=== PATIENT | male | born 1935 | race Caucasian/White ===

== ENCOUNTER → 2016-08-23 | Outpatient (CLI) | payer MEDICARE ==
--- NOTE | 2016-08-23 15:53 | US ---
EXAMINATION TYPE: US kidneys/renal and bladder DATE OF EXAM: 08/23/2016 COMPARISON: NONE CLINICAL HISTORY: N28.1 DAVE RENAL CYST. assess renal cysts EXAM MEASUREMENTS: Right Kidney: 10.5 x 4.6 x 7.3 cm Left Kidney: 10.9 x 5.4 x 5.3 cm Right Kidney: cortical thinning with multiple cyst seen, largest = 3.1cm at inferior pole Left Kidney: cortical thinning with multiple cyst, largest = 6.1cm Bladder: wnl seen Bilateral Jets seen: yes There is no evidence for hydronephrosis at this point in time. No nephrolithiasis is seen. No solid masses identified. The urinary bladder is anechoic. Bilateral ureteral jets are seen. 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
== END | disposition home or self-care (01) ==
LOC: RADUSWWP 14:03
PROVIDERS: ATTEND Internal Medicine Nephrology
DX: N28.1 Cyst of kidney, acquired (principal)
CPT/HCPCS: 76770

== ENCOUNTER 2019-09-04 04:23 | Emergency (ER) | payer MEDICARE ==
[2019-09-04 04:32] VITALS: RESP 18
[2019-09-04] MEDS ORDERED: LIDOCAINE 1%-EPI 1:100,000 20 ML VIAL SQ STA (04:57)
--- NOTE | 2019-09-04 04:59 | ED ---
Wound/Laceration HPI - General Chief Complaint: Wound/Laceration Stated Complaint: head lac Time Seen by Provider: 09/04/19 04:26 Source: patient, RN notes reviewed, old records reviewed Mode of arrival: ambulatory Limitations: no limitations - History of Present Illness Initial Comments: This is a 3-year-old male DF for evaluation head injury. Patient significant bleeding from his head after a trip followed going to the bathroom tonight. He is on the door jam no loss of consciousness does not complaining of any other injuries or pain. Moderate bleeding from the site is noted is currently bandaged. Patient is on Coumadin -: minutes(s) Location: face Place: home Patient Tetanus UTD: No Context: accidental Associated Symptoms: none - Related Data Home Medications Medication Instructions Recorded Confirmed Cholecalciferol [Vitamin D3] 2,000 units PO QAM 07/22/14 08/29/14 Citalopram Hydrobromide [CeleXA] 20 mg PO QAM 07/22/14 08/29/14 Diltiazem HCl [Cardizem] 180 mg PO HS 07/22/14 08/29/14 Pravastatin Sodium [Pravachol] 40 tab PO HS 07/22/14 08/29/14 Vits A,C,E/Lutein/Minerals 1 tab PO DAILY 07/22/14 08/29/14 [Ocuvite with Lutein Tablet] Warfarin [Coumadin] 5 mg PO DAILY 07/22/14 08/29/14 allopurinoL [Zyloprim] 50 mg PO QAM 07/22/14 08/29/14 Fish Oil/Dha/Epa [Fish Oil 1,200 1 cap PO DAILY 08/27/14 08/29/14 mg Fish Oil] Multivitamins, Thera [Multivitamin] 1 tab PO DAILY 08/27/14 08/29/14 Omeprazole [PriLOSEC] 20 mg PO AC-BRKFST 08/27/14 08/29/14 Vits A,C,E/Lutein/Minerals 1 tab PO DAILY 08/27/14 08/29/14 [Ocuvite with Lutein Tablet] Allergies Allergy/AdvReac Type Severity Reaction Status Date / Time No Known Allergies Allergy Verified 09/04/19 04:32 Review of Systems ROS Statement: Those systems with pertinent positive or pertinent negative responses have been documented in the HPI. ROS Other: All systems not noted in ROS Statement are negative. Past Medical History Past Medical History: Atrial Fibrillation, Deep Vein Thrombosis (DVT), Hypertension, Renal Disease, Rheumatoid Arthritis (RA) Additional Past Medical History / Comment(s): LOW RENAL FUNCTION History of Any Multi-Drug Resistant Organisms: None Reported Past Surgical History: Appendectomy Additional Past Surgical History / Comment(s): CARPEL TUNNEL Past Anesthesia/Blood Transfusion Reactions: No Reported Reaction Past Psychological History: No Psychological Hx Reported Smoking Status: Never smoker Past Alcohol Use History: Occasional Past Drug Use History: None Reported - Past Family History Mother Family Medical History: Coronary Artery Disease (CAD) Father Family Medical History: Diabetes Mellitus General Exam Limitations: no limitations General appearance: alert, in no apparent distress Head exam: Present: normocephalic, normal inspection. Absent: atraumatic (Horseshoe shaped 10 cm laceration to forehead) Eye exam: Present: normal appearance, PERRL, EOMI. Absent: scleral icterus, conjunctival injection, periorbital swelling ENT exam: Present: normal exam, mucous membranes moist Neck exam: Present: normal inspection. Absent: tenderness, meningismus, lymphadenopathy Respiratory exam: Present: normal lung sounds bilaterally. Absent: respiratory distress, wheezes, rales, rhonchi, stridor Cardiovascular Exam: Present: regular rate, normal rhythm, normal heart sounds. Absent: systolic murmur, diastolic murmur, rubs, gallop, clicks GI/Abdominal exam: Present: soft, normal bowel sounds. Absent: distended, tenderness, guarding, rebound, rigid Extremities exam: Present: normal inspection, full ROM, normal capillary refill. Absent: tenderness, pedal edema, joint swelling, calf tenderness Back exam: Present: normal inspection Neurological exam: Present: alert, oriented X3, CN II-XII intact Psychiatric exam: Present: normal affect, normal mood Skin exam: Present: warm, dry, intact, normal color. Absent: rash Course Vital Signs 09/04/19 09/04/19 04:26 06:29 Temperature 97.7 F 98.1 F Pulse Rate 72 80 Respiratory 18 18 Rate Blood Pressure 194/88 164/72 O2 Sat by Pulse 97 97 Oximetry Procedures - Laceration Laceration #1 Consent Obtained: verbal consent Indication: laceration Site: scalp Size (cm): 10 Description: linear Depth: simple, single layer Anesthetic Used: lidocaine 1%, with epi Anesthesia Technique: local infiltration Pre-repair: wound explored, irrigated extensively, deep structures intact Type of Sutures: nylon Size of Sutures: 4-0 Technique: simple, interrupted Complications: pain Patient Tolerated Procedure: well Medical Decision Making - Medical Decision Making 83 male DF for evaluation of head laceration. Patient has significant right- sided head laceration which is repaired here in the ER, 10 cm, patient is in no acute distress no headache and can be discharged home Disposition Clinical Impression: Laceration, Forehead laceration Disposition: HOME SELF-CARE Instructions (If sedation given, give patient instructions): Care For Your Stitches (ED), Laceration (ED) Is patient prescribed a controlled substance at d/c from ED?: No Referrals: Theresa Cheng MD [Primary Care Provider] - 1-2 days
[2019-09-04 06:30] VITALS: BP 164/72; PULSE 80; TEMP 98.1
== END 2019-09-04 06:29 | disposition home or self-care (01) ==
LOC: EC 04:23
DX: S01.01XA Laceration without foreign body of scalp, initial encounter (principal); I48.91 Unspecified atrial fibrillation; I10 Essential (primary) hypertension; Z86.718 Personal history of other venous thrombosis and embolism; Z79.01 Long term (current) use of anticoagulants; Z79.899 Other long term (current) drug therapy; W01.198A Fall on same level from slipping, tripping and stumbling with subsequent striking against other object, initial encounter; Y92.009 Unspecified place in unspecified non-institutional (private) residence as the place of occurrence of the external cause; Y93.01 Activity, walking, marching and hiking
CPT/HCPCS: 12004; 99283